=== PATIENT | male | born 2000 | race Caucasian/White ===

== ENCOUNTER 2021-09-27 15:45 | Emergency (ER) | payer MEDICAID ==
[~2021-09-27] VITALS: Ht 177.8 cm; Wt 102.3 kg
[2021-09-27 17:08] VITALS: BP 116/72
[2021-09-27] MEDS ORDERED: POLY10DR3 OP (17:20)
== END 2021-09-27 18:11 | disposition home or self-care (01) ==
LOC: EMS 15:51
DX: H10.9 Unspecified conjunctivitis (principal)
CPT/HCPCS: 99283; Z7502